=== PATIENT | female | born 1970 ===

== ENCOUNTER 2018-03-27 12:50 | Emergency (ER) | payer BC ==
[2018-03-27 13:09] VITALS: BP 146/90
[2018-03-27] MEDS ORDERED: Al Hydrox/Mg Hydrox/Simet LIQ* 30 ML UDC PO ONE (13:32)
[2018-03-27] MEDS ORDERED: Lidocaine 2% VISCOUS* 15 ML UDC PO ONE (13:32)
--- NOTE | 2018-03-27 13:36 | UC ---
Abdominal Pain Female HPI - HPI Summary HPI Summary: Pt presents to stating Monday evening ate pizza with mushrooms, peppers and onions. Pt states ate late at night. Pt states has had heartburn since. Pt states has been belching intermittently. Sx worse with lying flat. Pt states she took some gas x which help temporarily. Pt states noted was worse after coffee. Pt states acid taste in mouth. Denies SOB, diaphoresis, light headed. Pt with a h/o cardiac dx with stent. No DM No tobacco Pt with appt with PCP next Thur Pt's medications reviewed - History of Current Complaint Chief Complaint: UCGI Stated Complaint: HEART BURN Time Seen by Provider: 03/27/18 13:07 Hx Obtained From: Patient Hx Last Menstrual Period: 05/19/15 Onset/Duration: Gradual Onset Severity Currently: Moderate Pain Intensity: 5 Allergies/Adverse Reactions: Allergies Allergy/AdvReac Type Severity Reaction Status Date / Time doxycycline Allergy Vomiting Verified 03/27/18 13:10 PMH/Surg Hx/FS Hx/Imm Hx Previously Healthy: Yes Cardiovascular History: Cardiac Disease, Hypertension - Surgical History Surgical History: Yes Surgery Procedure, Year, and Place: PTCA WITH STENT, APPENDECTOMY - Family History Known Family History: Positive: Hypertension - Social History Occupation: Employed Full-time Lives: With Family Alcohol Use: None Substance Use Type: None Smoking Status (MU): Light Every Day Tobacco Smoker Type: Cigarettes Amount Used/How Often: 1/2 PPD Have You Smoked in the Last Year: Yes Review of Systems All Other Systems Reviewed And Are Negative: Yes Cardiovascular: Positive: Other - epigastric burning pressure Gastrointestinal: Positive: Nausea, Other - epigastric burning Physical Exam - Summary Physical Exam Summary: Vital Signs Reviewed: Yes A+Ox3, no distress Eyes: Conjunctiva Clear, LAURA. EOM intact and full ENT: Hearing grossly normal TM x 2 clear, mmoist, uvula midline, no exudate, no erythema Neck: Positive: Supple Respiratory: Positive: No respiratory distress, No accessory muscle use + CTA throughout no w/r Cardiovascular: RRR nl s1, s2 no m/r CBT <2 sec abd soft + BS nd no guarding, no distension, mild epigastric discomfort with direct palpation Musculoskeletal Exam: NIETO x 4 without difficulty Strength Intact, ROM Intact Neurological: Positive: Alert, + sensation throughout Psychological: Positive: Normal Response To Family Skin: Positive: no rash, no ecchymosis Triage Information Reviewed: Yes Vital Signs: Initial Vital Signs Temp 99.3 F 03/27/18 13:07 Pulse 81 03/27/18 13:07 Resp 18 03/27/18 13:07 BP 146/90 03/27/18 13:07 Pulse Ox 98 03/27/18 13:07 Re-Evaluation - Re-Evaluation First Eval Change: Improved - sx completely resolved following Maalox, lidocaine will Rx pepcid reviewed food restrictions, multiple pillows, tums, has an appt with PCP Go to ED for any changes pt comfortable and agreement with plan Abd Pain Female Course/Dx - Course Course Of Treatment: Patient presents to urgent care reporting eating peppers, onions and red sauce pizza on Monday night late. Pt reports epigastric burning and pressure with belching since Pt reports acid taste in mouth. No other sx No shortness of breath, no diaphoresis. Pt VSS. Exam with mild epigastric pain with direct palpation. EKG without acute changes. will give GI cocktail and reassess. Mild HTN - known diagnosis - Differential Dx/Diagnosis Provider Diagnosis: Epigastric pain Discharge - Sign-Out/Discharge Documenting (check all that apply): Patient Departure All imaging exams completed and their final reports reviewed: No Studies - Discharge Plan Condition: Stable Disposition: HOME Prescriptions: Famotidine TAB* [Pepcid 20 MG TAB*] 20 mg PO DAILY #30 tab Patient Education Materials: Gastroesophageal Reflux Disease (ED) Referrals: Benoit Byrnes MD [Primary Care Provider] - Additional Instructions: - Take pepcid 2 times a day as prescribed - eat small, frequent meals every 2-3 hours while awake - okay to take maalox or Tums intermittently for burning pain - avoid spicy foods, acidic foods, tomato based foods, citric foods and carbonated beverages - do not lay down for at least 1 hour after eating - use 2 pillows to stay propped up at night - keep your appointment as scheduled next If you have worsening pain, shortness of breath, sweating, chest pressure, lightheadedness, or ANY other concern it is recommended you go directly to the emergency department for further evaluation- okay to call 911 - Billing Disposition and Condition Condition: STABLE Disposition: Home
== END 2018-03-27 14:04 | disposition home or self-care (01) ==
LOC: UCEAST 12:50
DX: R10.13 Epigastric pain (principal); I25.10 Atherosclerotic heart disease of native coronary artery without angina pectoris; I10 Essential (primary) hypertension; Z95.1 Presence of aortocoronary bypass graft; Z88.1 Allergy status to other antibiotic agents; F17.210 Nicotine dependence, cigarettes, uncomplicated
CPT/HCPCS: 99212; A9270-GY; G0463

== ENCOUNTER 2021-12-05 21:24 | Observation (INO) ==
[2021-12-05 22:00] LABS: INR 0.97 (0.89-1.11)
[2021-12-05 22:25] LABS: Albumin/Globulin Ratio 1.3 (1-3); Calcium 9.3 mg/dL (8.6-10.3); Globulin 3.1 g/dL (2-4); Potassium 4.2 mmol/L (3.5-5.0); Total Bilirubin 0.5 mg/dL (0.2-1.0); Total Protein 7.1 g/dL (6.4-8.9); eGFR CKD-EPI 60.9 (>60)
[2021-12-05 22:48] LABS: ABS Basophils 0.1 10^3/ul (0-0.2); ABS Eosinophils 0.1 10^3/ul (0-0.6); ABS Monocytes 0.6 10^3/ul (0-0.8); Eosinophil % 1.2 %; Hematocrit 41 % (35-47); Hemoglobin 13.2 g/dL (12.0-16.0); Lymphocyte % 38.6 %; Mean Corpuscular HGB Conc 32 g/dL (31-36); Mean Corpuscular Hemoglobin 27 pg (27-31); Mean Corpuscular Volume 83 fL (80-97); Mean Platelet Volume 8.3 fL (7.4-10.4); Nucleated Red Blood Cells % 0.2; Platelet Count 242 10^3/uL (150-450); Red Cell Distribution Width 15 % (10-15); White Blood Count 7.8 10^3/uL (3.5-10.8)
[2021-12-05 23:13] LABS: High Sensitivity Troponin 1 Hr 12 pg/mL (<15)
[2021-12-05] MEDS ORDERED: Enoxaparin 40 MG/0.4 ML SYR SUBCUT SCH (23:45)
[2021-12-06] MEDS ORDERED: Dextrose 50% Syringe 50 ml 25 GM/50 ML SYRINGE IV PUSH PRN (02:14)
[2021-12-06 05:24] LABS: ABS Basophils 0.1 10^3/ul (0-0.2); ABS Eosinophils 0.2 10^3/ul (0-0.6); ABS Lymphocytes 4.1 10^3/ul (1.0-4.8); ABS Monocytes 0.6 10^3/ul (0-0.8); ABS Neutrophils 4.1 10^3/ul (1.5-7.7); Eosinophil % 1.9 %; Hematocrit 38 % (35-47); Hemoglobin 12.4 g/dL (12.0-16.0); Lymphocyte % 45.3 %; Mean Corpuscular HGB Conc 32 g/dL (31-36); Mean Corpuscular Hemoglobin 27 pg (27-31); Mean Corpuscular Volume 83 fL (80-97); Mean Platelet Volume 8.3 fL (7.4-10.4); Nucleated Red Blood Cells % 0.2; Platelet Count 237 10^3/uL (150-450); Red Blood Count 4.62 10^6 /uL (3.70-4.87); Red Cell Distribution Width 14 % (10-15); White Blood Count 9.2 10^3/uL (3.5-10.8)
[2021-12-06 05:54] LABS: Calcium 9.3 mg/dL (8.6-10.3); Potassium 3.8 mmol/L (3.5-5.0); eGFR CKD-EPI 60.3 (>60)
[2021-12-06] MEDS ORDERED: Potassium Chlor 20 meq TAB.ER PO ONE (07:24)
[2021-12-06 16:06] VITALS: BP 122/68
== END 2021-12-06 16:06 | disposition home or self-care (01) ==
LOC: EDHOLD 21:24 → ED 21:24 → SUATTDRO 23:54 → EDHOLD 12-06 16:05
PROVIDERS: ADMIT Student in an Organized Health Care Education/Training Program; ATTEND Hospitalist